=== PATIENT | female | born 1955 | race Caucasian/White ===

== ENCOUNTER 2018-04-09 15:07 | Emergency (ER) | payer OTHER, MEDICAID, SELFPAY ==
[2018-04-09 15:10] VITALS: BP 131/75; PULSE 72; RESP 16; TEMP 36.2; O2SAT 97; BMI 31.5
[2018-04-09 15:38] LABS: Appearance Urine UA CLEAR; Bilirubin Urine UA NEGATIVE (NEGATIVE); Color Urine UA YELLOW; Glucose Urine UA 1+ g/dL (Normal); Ketones Urine UA NEGATIVE (NEGATIVE); Leukocyte Esterase Urine UA 1+ (NEGATIVE); Nitrite Urine UA POSITIVE (Negative); Occult Blood Urine UA 3+ (Negative); Protein Urine UA TRACE (Negative); Specific Gravity Urine UA <=1.005 (1.000-1.035); Urobilinogen Urine UA 0.2 E.U./dL (0.2); pH Urine UA 5.5 (4.5-8.0)
[2018-04-09 15:49] LABS: Bacteria Urine Occasional (0-1); Culture Indicated Urine Specimen Cultured; RBC Urine 1-5/HPF (0-5/HPF); Squamous Epithelial Cell Urine 0-1 /HPF; WBC Urine 5-10/HPF (0-5/HPF)
== END 2018-04-09 16:53 | disposition left against medical advice (07) ==
LOC: ED 15:25
PROVIDERS: Emergency Provider Emergency Medicine
DX: R10.9 Unspecified abdominal pain (principal)
CPT/HCPCS: 81001; 87077; 87086; 87186; 99282

== ENCOUNTER → 2022-03-29 15:55 | Outpatient (CLI) | payer MEDICARE, MEDICAID, SELFPAY ==
--- NOTE | 2022-03-29 16:00 | DI.MRI.S_ITS ---
PROCEDURE: MR PELVIS WO/W CON INDICATIONS: INTRA-ABDOMINAL AND PELVIC SWELLING,MASS TECHNIQUE: Coronal HASTE, sagittal breath-hold T2 FSE; axial T1 FSE with and without fat saturation through the pelvis. Optional long- and short-axis uterine nonbreath-hold T2 FSE through the uterus. Sagittal or axial dynamic VIBE during administration of contrast. Post-contrast axial or coronal VIBE/2-D FLASH with fat saturation from the iliac crests to the symphysis. Optional diffusion weighted imaging and ADC may be performed. COMPARISON: None. FINDINGS: Image quality: Excellent. Uterus: Uterus is normal in size. Endometrium is non-thickened, 2 mm. Junctional zone is normal in thickness at 12 mm or less. Adnexa: A right adnexal cyst is present, likely right ovarian as no definite separate right ovary is identified. The cyst measures 4.3 x 3.2 x 3.2 cm (coronal T2 haste series 2, image 20 and sagittal T2 series 3, image 10). The dominant portion of the cyst appears simple without internal enhancement, papillary projections, or septations. At the upper margin of the cyst, a multiloculated/septated portion is present (for example series 3, image 6) demonstrating a thin internal septation and varying degrees of T2 hyperintensity but no definite mural nodularity. This area measures 1.6 cm. It could represent hydrosalpinx or small ovarian cysts. Unlikely represent vessels given lack of enhancement on postcontrast images. The left ovary is challenging to identify, suspect secondary to small size/senescent change. A candidate left ovary measures 1.9 x 1.2 cm. No left adnexal mass visualized. Urinary system: Bladder wall is normal in thickness. Distal ureters are non distended. Nodes and vessels: No pelvic or inguinal adenopathy by size criteria. Iliac vessels are normal in size. Bowel and peritoneum: No pathologic free pelvic fluid. Inferior colon and small bowel loops are normal in caliber. Soft tissues: No inguinal hernias. Lower abdominal wall ventral hernia containing fat and nondilated small bowel, neck measures approximately 3.1 cm. Bones: Marrow demonstrates normal overall signal. IMPRESSION: 1. A 4.3 cm right adnexal cyst is present, likely ovarian. The dominant portion of the cyst appears simple. At the upper margin of the cyst, a small multi loculated/septated cystic structure is present, and could represent a septated portion of the dominant cyst, hydrosalpinx, or small adjacent ovarian cysts. No highly suspicious findings such as soft tissue nodularity/papillary projections or internal enhancement identified. The findings raise the possibility of an ovarian surface epithelial neoplasm such as serous or mucinous cystadenoma, other etiologies not excluded. Gynecology consultation may be helpful to direct further management. If further imaging is desired, surveillance ultrasound to assess for change in size could be obtained, with an interval of 6-12 months or other interval at clinical discretion. 2. Lower abdominal wall ventral hernia containing fat and nondilated small bowel. Dictated by: Marcel Eduardo M.D. on 03/30/2022 at 11:13 Approved by: Marcel Eduardo M.D. on 03/30/2022 at 12:05
== END ==
PROVIDERS: Referring Provider Nurse Practitioner; Visit Provider Nurse Practitioner
DX: R19.09 Other intra-abdominal and pelvic swelling, mass and lump (principal); K43.9 Ventral hernia without obstruction or gangrene
CPT/HCPCS: 72197; A9579

== ENCOUNTER → 2023-01-06 15:31 | Outpatient (CLI) | payer MEDICARE, MEDICAID, SELFPAY ==
--- NOTE | 2023-01-06 15:33 | DI.MRI.S_ITS ---
PROCEDURE: MR PELVIS WO CON INDICATIONS: Other ovarian cyst, right side TECHNIQUE: Coronal HASTE, sagittal breath-hold T2 FSE; axial T1 FSE with and without fat saturation through the pelvis. Optional long- and short-axis uterine nonbreath-hold T2 FSE through the uterus. Sagittal or axial dynamic VIBE during administration of contrast. Post-contrast axial or coronal VIBE/2-D FLASH with fat saturation from the iliac crests to the symphysis. Optional diffusion weighted imaging and ADC may be performed. COMPARISON: [facility], MR, MR PELVIS WO/W CON, 03/29/2022, 16:08. FINDINGS: Image quality: Excellent. Uterus: Uterus is anteverted and normal in size measuring 7.5 cm. Endometrium is normal in thickness measuring 0.2 cm. Junctional zone is normal in thickness at 12 mm or less. Adnexa: Right ovarian T2 hyperintense cyst measuring 4.1 x 2.9 cm, (13/8), previously remeasured 4.3 x 3.2 cm on 03/29/2022. In the craniocaudal dimension this measures at 3.4 cm, (3/11), previously remeasured 3.5 cm. T1 isointense. No suspicious enhancement. Subcentimeter adjacent cysts right ovarian cyst. The left ovary is not identified. Urinary system: Bladder wall is normal in thickness. Distal ureters are non distended. Urethra appears normal in morphology. Nodes and vessels: No pelvic or inguinal adenopathy by size criteria. Iliac vessels are normal in size. Bowel and peritoneum: No pathologic free pelvic fluid. Inferior colon and small bowel loops are normal in caliber. A few colonic diverticuli. Soft tissues: Lower abdominal right paramedian ventral abdominal wall hernia containing small bowel. No findings of pelvic floor incompetence in the absence of provocation. Bones: Marrow demonstrates normal overall signal. IMPRESSION: 1. Right ovarian T2 hyperintense cyst measuring 4.1 cm is slightly decreased in size compared to March 2022. No suspicious enhancement. Consider continued imaging surveillance with ultrasound or MRI. 2. Left ovary is not identified 3. No uterine adenomyosis. No free fluid. Dictated by: Jessee Adair M.D. on 01/08/2023 at 8:22 Approved by: Jessee Adair M.D. on 01/08/2023 at 9:35
== END ==
PROVIDERS: Referring Provider Nurse Practitioner; Visit Provider Nurse Practitioner
DX: N83.291 Other ovarian cyst, right side (principal)
CPT/HCPCS: 72195

== ENCOUNTER → 2023-11-14 13:33 | Outpatient (CLI) | payer MEDICARE, MEDICAID, SELFPAY ==
[2023-11-14 14:24] LABS: Blood Urea Nitrogen 17 mg/dL (7-17); Calcium 10.3 mg/dL (8.4-10.2); Carbon Dioxide 30 mmol/L (22-32); Chloride 98 mmol/L (98-107); Estimated Glomerular Filt Rate > 60 mL/min (>60); Glucose 187 mg/dL (80-110); HEMOLYSIS < 15 (0-50); Potassium 4.3 mmol/L (3.4-5.1); Sodium 137 mmol/L (137-145)
== END ==
LOC: LAB 13:37
PROVIDERS: PCP Nurse Practitioner; Referring Provider Internal Medicine Cardiovascular Disease; Visit Provider Internal Medicine Cardiovascular Disease
DX: I25.118 Atherosclerotic heart disease of native coronary artery with other forms of angina pectoris (principal); I50.20 Unspecified systolic (congestive) heart failure; I44.7 Left bundle-branch block, unspecified; I25.10 Atherosclerotic heart disease of native coronary artery without angina pectoris; I25.84 Coronary atherosclerosis due to calcified coronary lesion
CPT/HCPCS: 36415; 80048

== ENCOUNTER → 2023-12-03 13:43 | Outpatient (CLI) | payer MEDICARE, MEDICAID, SELFPAY ==
--- NOTE | 2023-12-03 | DI.NM.S_ITS ---
PROCEDURE: NM CORA PERF SPECT R&S PHARM Rest and pharmacological stress myocardial perfusion SPECT with gated imaging and ejection fraction RADIOPHARMACEUTICAL: 25.8 mCi Tc-99m tetrafosmin IV at rest and 25.6 mCi Tc-99m tetrafosmin IV at peak effect of pharmacological stress. [id number] was performed. INDICATIONS: Atherosclerotic heart disease of [place] TECHNIQUE: Radiopharmaceutical was injected at peak stress test, and also at rest. SPECT images were obtained. SPECT myocardial perfusion images were displayed in short axis, horizontal long axis, and vertical long axis views. Gated images were reviewed using [employer]. software. COMPARISON: None. CARDIAC STRESS: A pharmacologic stress test was performed under the supervision of an attending staff, using an infusion of lexiscan 0.4mg IV X1. Hemodynamic data: There is normal blood pressure and heart rate response to pharmacologic stress. Symptoms: The patient denied anginal chest pain. Aminophylline: none EKG: No diagnostic changes of ischemia; no ectopy. FINDINGS: Raw data: There is good myocardial uptake of radiotracer. No significant motion artifacts. Left ventricle function: Gated images demonstrate hypokinesis of the septum. No transient ischemic dilation; TID is 1.22 (normal less than 1.3). Left ventricle resting end diastolic volume is 119 mL. Left ventricle stress ejection fraction is 55%; normal range is above 45%. Myocardial perfusion: There is a moderately intense anterior and apical defect at rest that improves with stress supine imaging, suggesting artifact but old non-transmural infarction can't be definitively excluded. Stress prone images look similar to supine images. SSS 1 SRS 4. IMPRESSION: Low risk, probably normal pharm nuclear stress test. 1) Moderately intense anterior and apical defect at rest that improves with stress supine imaging, suggesting artifact but old non-transmural infarction can't be definitively excluded. Stress prone images look similar to supine images. SSS 1 SRS 4. 2) Normal left ventricular size and systolic function (EF post stress 55%). The septal wall is mildly hypokinetic. 3) No ST changes with lexiscan. 4) No angina during the study. 5) No prior nuclear stress test available for comparison. Dictated by: Tracy Vargas MD on 12/04/2023 at 16:46 Approved by: Tracy Vargas MD on 12/04/2023 at 16:51
== END ==
LOC: NUCM 13:44
PROVIDERS: PCP Nurse Practitioner; Referring Provider Internal Medicine Cardiovascular Disease; Visit Provider Internal Medicine Cardiovascular Disease
DX: I25.118 Atherosclerotic heart disease of native coronary artery with other forms of angina pectoris (principal); I50.20 Unspecified systolic (congestive) heart failure; I44.7 Left bundle-branch block, unspecified
CPT/HCPCS: 78452; 93017; A9502; J2785